=== PATIENT | female | born 1995 | race Asian ===

== ENCOUNTER 2017-11-28 16:30 | Emergency (ER) | payer OTHER ==
[~2017-11-28] VITALS: Ht 152.4 cm; Wt 36.3 kg
[2017-11-28 16:46] VITALS: BP_SYST 98
[2017-11-28] MEDS ORDERED: IBUPROFEN 600 MG TABLET PO ONE (17:15)
[2017-11-28] MEDS ORDERED: DIPH-TET-PERTUS Vaccine 0.5 ML VIAL (ADACEL) I.M. ONE (17:15)
[2017-11-28 18:20] VITALS: BP_SYST 112
== END 2017-11-28 18:20 | disposition home or self-care (01) ==
LOC: SED 16:30
DX: S51.812A Laceration without foreign body of left forearm, initial encounter (principal); W45.8XXA Other foreign body or object entering through skin, initial encounter; Y93.89 Activity, other specified; Y92.89 Other specified places as the place of occurrence of the external cause; Y99.8 Other external cause status
CPT/HCPCS: 90715; 99283

== ENCOUNTER 2017-12-01 17:17 | Emergency (ER) | payer OTHER ==
[~2017-12-01] VITALS: Ht 152.4 cm; Wt 36.3 kg
[2017-12-01 17:29] VITALS: BP_SYST 104
[2017-12-01 17:49] VITALS: BP_SYST 104
== END 2017-12-01 17:49 | disposition home or self-care (01) ==
LOC: SED 17:17
DX: S51.812D Laceration without foreign body of left forearm, subsequent encounter (principal)
CPT/HCPCS: 99282